=== PATIENT | female | born 1980 | race Caucasian/White ===

== ENCOUNTER 2022-03-26 19:53 | Emergency (ER) | payer OTHER, SELFPAY ==
[2022-03-26 20:29] VITALS: BP 141/80; PULSE 92; RESP 16; TEMP 37.2; O2SAT 98; BMI 25.2
--- NOTE | 2022-03-26 21:42 | CRLHL7_ITS ---
For Patients: As a result of the Century Cures Act, medical imaging exams and procedure reports are released immediately into your electronic medical record. You may view this report before your referring provider. If you have questions, please contact your health care provider. INDICATION: Left flank pain. Eval for stone.. TECHNIQUE: CT abdomen and pelvis without contrast. COMPARISON: January 29, 2019.. FINDINGS: Limited evaluation of the intra-abdominal solid organs without IV contrast. Lower chest: Unremarkable. Liver: Normal in size and attenuation. No suspicious masses. Gallbladder and bile ducts: No stones or inflammation. No biliary dilatation. Pancreas: Unremarkable. No mass or inflammation. Spleen: Normal in size. No masses. Adrenal glands: Normal in size. No nodules. Kidneys: Core stone in the distal left ureter is identified measuring up to 9 millimeters in diameter. There is proximal left hydroureter nephrosis to a severe degree. Additional nonobstructing stones are identified in the inferior pole of the left kidney measuring up to 9 millimeters in diameter. Small punctate stones in the right kidney, nonobstructing. No right hydronephrosis or hydroureter. GI tract: Unremarkable. Normal in caliber. No sign of mass or inflammation. Normal appendix. Vasculature: Abdominal aorta is normal in caliber. Lymph nodes: No lymphadenopathy. Peritoneum/Abdominal Wall: Small fat containing left inguinal hernia. No sign of mass or infiltration. No free air or significant free fluid. Pelvis: Unremarkable. No pelvic masses. Bones: Unremarkable for age. IMPRESSION: Left distal ureteral stone measuring up to 9 millimeters in diameter with proximal moderate to severe hydroureteronephrosis. Additional nonobstructing stones in the bilateral kidneys. Please note that all CT scans at this facility use dose modulation, iterative reconstruction, and/or weight-based dosing when appropriate to reduce radiation dose to as low as reasonably achievable. Dictated by Jensen Bourne MD @ 03/26/2022 10:45:53 PM (Electronically Signed)
[2022-03-26 21:59] LABS: Basophils Absolute Auto 0.03 K/uL (0.00-0.30); Basophils Percent Auto 0.5 % (0.0-3.0); Eosinophils Absolute Auto 0.16 K/uL (0.00-0.50); Eosinophils Percent Auto 2.9 % (0.0-7.0); Hematocrit 41.6 % (33.0-51.0); Hemoglobin* 14.2 gm/dL (12.0-16.0); Lymphocytes Percent Auto 32.5 % (20-44); Mean Corpuscular HGB Conc 34 gm/dL (32-36); Mean Corpuscular Hemoglobin 29 pg (26-34); Mean Corpuscular Volume 85 fL (80-100); Monocytes Percent Auto 8.9 % (0.0-11.0); Neutrophils Absolute Auto 3.05 K/uL (1.7-7.0); Neutrophils Percent Auto 55.2 % (42.0-72.0); Platelet Count* 197 K/uL (140-440); RDW Coefficient of Variation % 12.1 % (11.5-15.5); Red Blood Count 4.87 m/uL (4.00-5.20); White Blood Count* 5.53 K/uL (4.50-11.00)
[2022-03-26 22:01] LABS: Slide Review Reflex No
[2022-03-26 22:08] LABS: Appearance Urine Cloudy (Clear); Bilirubin Urine Negative (Negative); Blood Urine 3+ (Negative); Color Urine Yellow (Yellow); Glucose Urine Negative (Negative); Ketones Urine Trace (Negative); Leukocyte Esterase Urine Trace (Negative); Nitrite Urine Negative (Negative); Protein Urine 2+ (Negative); Specific Gravity Urine >= 1.030 (1.000-1.030); Urobilinogen Urine 0.2 (0.2-1.0)
[2022-03-26 22:10] LABS: Chloride* 107 mmol/L (96-114)
[2022-03-26 22:11] LABS: Potassium* 3.6 mmol/L (3.6-5.1); Sodium* 143 mmol/L (135-149)
[2022-03-26 22:14] LABS: Blood Urea Nitrogen* 20 mg/dL (5-24); Calcium* 8.9 mg/dL (8.4-10.6); Carbon Dioxide* 29 mmol/L (20-32); Creatinine* 0.9 mg/dL (0.5-1.5); Est. Creatinine Clearance* 66.37; Estimated Glomerular Filt Rate 83 ml/min; Glucose* 91 mg/dL (60-115)
[2022-03-26] MEDS: 0.9 % SODIUM CHLORIDE 1000 ml 1,000 ML IV (22:14)
[2022-03-26] MEDS: ONDANSETRON 2 MG/ML inj 4 MG IVP (22:14)
[2022-03-26] MEDS: KETOROLAC 30 MG/ML inj IVP (22:14)
[2022-03-26 22:17] VITALS: PULSE 59; O2SAT 99
[2022-03-26 22:44] LABS: Bacteria Urine Moderate; Mucus Urine Few; Squamous Epithelial Cell Urine Moderate (None-Few)
[2022-03-26 22:45] LABS: Ur HCG Qualitative* Negative (Negative)
[2022-03-26 23:54] VITALS: BP 137/90; PULSE 73; O2SAT 98
[2022-03-26 23:55] VITALS: PULSE 73; O2SAT 98
[2022-03-27] VITALS: PULSE 70; O2SAT 97
[2022-03-27 00:01] VITALS: BP 141/88; PULSE 72; O2SAT 98
[2022-03-27 00:15] VITALS: PULSE 76; O2SAT 97
[2022-03-27 00:30] VITALS: PULSE 79; O2SAT 98
[2022-03-27 00:31] VITALS: BP 151/97; PULSE 76; O2SAT 98
--- NOTE | 2022-03-27 00:31 | ED_ITS ---
HPI - Abdominal Pain General Chief Complaint: Flank Pain Stated Complaint: Lower Left Back Pain,Possible kidney stone Time Seen by Provider: 03/26/22 21:34 History of Present Illness HPI narrative: Pt is a 41 year old woman who presents with 8 days of progressive left sided flank pain. Patient has a history of kidney stone and has needed lithotripsy in the past. She has no dysuria. No fevers, chills, some nausea but no vomiting. She has no other abd pain. She has been able to eat and drink. Pain seems to extend down inferiorly. OTC pain medications were not helpful. Pain is sharp and severe. States that she is not . Related Data Home Medications Medication Instructions Recorded Confirmed montelukast 10 mg tablet mg 03/26/22 sertraline 50 mg tablet 100 mg 03/26/22 Previous Rx's Medication Instructions Recorded tamsulosin 0.4 mg capsule (Flomax) 0.4 mg PO QHS #30 caps 03/27/22 Allergies Allergy/AdvReac Type Severity Reaction Status Date / Time No Known Drug Allergies Allergy Verified 03/26/22 20:29 Review of Systems Status of ROS Reports: 10 or more systems reviewed and unremarkable except as noted in History and below [facility] Medical History (Updated 03/27/22 @ 00:40 by Saúl Perales MD) Depression Renal lithiasis Seasonal allergies Social History Smoking Status: Never smoker Second hand tobacco smoke exposure: No How often do you have a drink containing alcohol: monthly or less How often do you have six or more drinks on one occasion: Never AUDIT-C Alcohol total score: 1 Non-prescribed substance use: denies use service: No Exam Narrative: Exam Narrative: EXAM GENERAL: Patient appears comfortable and well. EYES: No scleral icterus. THYROID: no thyroid nodules or thyromegaly. LYMPH: No supraclavicular or cervical lymphadenopathy. SKIN: Visible skin seen during exam normal or with benign process only. EXT: No dependent lower extremity pedal edema. HEART: Regular rate and rhythm with no murmurs, rubs, or gallops. LUNGS: Clear to auscultation bilaterally with no crackles or wheezes. ABD: Soft, non tender, non distended. PSYCH: Good eye contact, speech is not pressured. Const: Vital Signs, click to edit/add: Vital Signs - 24 hr 03/26/22 20:29 03/26/22 22:17 03/26/22 23:54 Temperature 98.9 F Pulse Rate 59 L 73 Pulse Rate [Pulse Oximeter] 92 Respiratory Rate 16 Blood Pressure 137/90 H Blood Pressure [Ri ght Upper Arm] 141/80 H Pulse Oximetry 98 99 98 Oxygen Delivery Me thod Room Air 03/26/22 23:55 Temperature Pulse Rate 73 Pulse Rate [Pulse Oximeter] Respiratory Rate Blood Pressure Blood Pressure [Ri ght Upper Arm] Pulse Oximetry 98 Oxygen Delivery Me thod Course Course Hospital Course: Pt seen and examined. CT of the abd pelvis shows 9 mm renal lithiasis on the left. Labs unremarkable except hematuria on UA. Pt given Zofran, Toradol and Nor mal Saline IV. No change in symptoms. Vital Signs Vital signs: Initial Vital Signs Temperature 98.9 F 03/26/22 20:29 Temperature Source Oral 03/26/22 20:29 Pulse Rate 92 03/26/22 20:29 Respiratory Rate 16 03/26/22 20:29 Blood Pressure 141/80 H 03/26/22 20:29 Blood Pressure Mean 100 03/26/22 20:29 Blood Pressure Position Sitting 03/26/22 20:29 Pulse Oximetry 98 03/26/22 20:29 Oxygen Delivery Method 03/26/22 20:29 Vital Signs Temperature 98.9 F 03/26/22 20:29 Pulse Rate 92 03/26/22 20:29 Respiratory Rate 16 03/26/22 20:29 Blood Pressure 141/80 H 03/26/22 20:29 Pulse Oximetry 98 03/26/22 20:29 Oxygen Delivery Method 03/26/22 20:29 Temperature 98.9 F 03/26/22 20:29 Pulse Rate 73 03/26/22 23:55 Respiratory Rate 16 03/26/22 20:29 Blood Pressure 137/90 H 03/26/22 23:54 Pulse Oximetry 98 03/26/22 23:55 Oxygen Delivery Method 03/26/22 20:29 MDM - Abdominal Pain MDM Narrative Medical decision making narrative: Pt presents with L flank pain. Pt found to have 9 mm kidney stone on the left. No signs of sepsis. Treated with normal saline, zofran and toradol. Pt has a history of Lithotripsy. She will need Urology follow up. Will treat with Flomax, Oxycodone and Zofran. PCP follow up. Differential Diagnosis Differential diagnosis: Likely abdominal pain, acute appendicitis, calculus of kidney, constipation, diverticulitis, endometriosis, pancreatitis and small bowel obstruction Lab Data Labs: Lab Results 03/26/22 03/26/22 03/26/22 Range/Units 21:20 21:52 21:52 WBC 5.53 (4.50-11.00) K/uL RBC 4.87 (4.00-5.20) m/uL Hgb 14.2 (12.0-16.0) gm/dL Hct 41.6 (33.0-51.0) % MCV 85 (80-100) fL MCH 29 (26-34) pg MCHC 34 (32-36) gm/dL RDW Coeff of Mandie 12.1 (11.5-15.5) % Plt Count 197 (140-440) K/uL Neut % (Auto) 55.2 (42.0-72.0) % Lymph % (Auto) 32.5 (20-44) % [place] % (Auto) 8.9 (0.0-11.0) % Eos % (Auto) 2.9 (0.0-7.0) % Baso % (Auto) 0.5 (0.0-3.0) % Neut # (Auto) 3.05 (1.7-7.0) K/uL Lymph # (Auto) 1.80 (0.90-2.90) K/uL [place] # (Auto) 0.50 (0.00-0.90) K/UL Eos # (Auto) 0.16 (0.00-0.50) K/uL Baso # (Auto) 0.03 (0.00-0.30) K/uL Sodium 143 (135-149) mmol/L Potassium 3.6 (3.6-5.1) mmol/L Chloride 107 (96-114) mmol/L Carbon Dioxide 29 (20-32) mmol/L BUN 20 (5-24) mg/dL Creatinine 0.9 (0.5-1.5) mg/dL Estimated Creat Clear 66.37 Estimated GFR 83 ml/min Glucose 91 (60-115) mg/dL Calcium 8.9 (8.4-10.6) mg/dL Urine Color Yellow (Yellow) Urine Appearance Cloudy A (Clear) Urine pH 6.0 (5.0-8.5) Ur Specific [place] >= 1.030 (1.000-1.030) Urine Protein 2+ A (Negative) Urine Glucose (UA) Negative (Negative) Urine Ketones Trace A (Negative) Urine Blood 3+ A (Negative) Urine Nitrite Negative (Negative) Urine Bilirubin Negative (Negative) Urine Urobilinogen 0.2 (0.2-1.0) Ur Leukocyte Esterase Trace A (Negative) Urine RBC 10-25 A (0-2) Urine WBC 2-5 (0-5) Ur Squamous Epith Cells Moderate A (None-Few) Urine Bacteria Moderate A (None) Urine Mucus Few A (None) Urine HCG, Qual Negative (Negative) Discharge Plan Discharge Clinical Impression: Kidney stone Patient Disposition: Home, Self-Care Condition: Stable Instructions: Kidney Stones (ED) Additional Instructions: Oxycodone as directed from [facility] Zofran from home supply as directed Flomax sent to pharmacy Follow up with Urology. Activity Level: No Restrictions Discharge Diet: Regular Prescriptions: New tamsulosin [Flomax] 0.4 mg capsule 0.4 mg PO QHS Qty: 30 2RF No Action sertraline 50 mg tablet 100 mg montelukast 10 mg tablet Follow Up/Referrals: Lamont Londono MD [Primary Care Provider] - Stand Alone Forms: [facility] Info Instructions
== END 2022-03-27 00:52 | disposition home or self-care (01) ==
PROVIDERS: Emergency Medicine; Emergency Provider Internal Medicine; PCP Family Medicine
DX: N20.0 Calculus of kidney (principal); Z87.442 Personal history of urinary calculi
CPT/HCPCS: 36415; 74176; 80048; 81001; 81025; 85025; 87086; 96361; 96374; 96375; 99283; 99284; J1885; J2405; J7030

== ENCOUNTER 2023-11-25 09:13 | Outpatient (CLI) | payer BC, SELFPAY ==
--- OUTSIDE RECORDS SUMMARY | 2023-11-25 09:16 | XMS_ITS | Clinical Summary ---
Author Organization [facility] Address [place], [place] [address] Care Team Providers Care Labor Contractor Name Role Phone Lamont Londono MD Primary Care Provider [phone] Allergies No known active allergies Medications Medication Sig Dispensed Refills Start Date End Date Status sertraline (ZOLOFT) 50 mg tablet Take 100 mg by mouth once daily. 0 03/08/2015 Active fluticasone (50 mcg per actuation) nasal solution (FLONASE) Inhale 1 [place] to both nostrils once daily if needed. 1 Bottle 0 03/08/2015 Active montelukast (SINGULAIR) 10 mg tablet Take 10 mg by mouth once daily. Active galcanezumab-gnlm (Emgality Syringe) 120 mg/mL syrg Inject 120 mg subcutaneous every 4 weeks. Active SUMAtriptan (IMITREX) 50 mg tablet Take 50 mg by mouth 2 times daily if needed for Migraine. Give at minimum 2hrs apart. Max Dose: 200mg per 24hrs. Active oxyCODONE-acetami nophen (PERCOCET) 5-325 mg per tabletIndications :Left renal stone Take 1 Tablet by mouth every 6 hours if needed for Pain. Max acetaminophen dose: 4000mg in 24 hrs. 20 Tablet 04/25/2022 Active tamsulosin (FLOMAX) 0.4 mg capsuleIndication s:Left renal stone Take 1 Capsule (0.4 mg) by mouth once daily after a meal. 30 Capsule 04/25/2022 Active Active Problems Problem Noted Date Diagnosed Date Bilateral kidney stones 05/08/2015 Urinary urgency 05/08/2015 Immunizations Name Administration Dates Next Due Tdap 10/25/2014 Family History Medical History Relation Name Comments Cancer-prostate Father Heart Disease Father Hyperlipidemia Father Hypertension Father Other Father Stroke Father Good Health Mother Good Health Sister Relation Name Status Comments Father Mother Sister Social History Tobacco Use Types Packs/Day Years Used Date Smoking Tobacco: Never Smokeless Tobacco: Never Alcohol Use Standard Drinks/Week Comments Yes 0 (1 standard drink = 0.6 oz pur e alcohol) rare Sex and Gender Information Value Date Recorded Sex Assigned at Not on file Gender Identity Not on file Sexual Orientation Not on file Obstetrics History Last Filed Vital Signs Vital Sign Reading Time Taken Comments Blood Pressure 130/59 04/25/2022 5:30 PM EXHAUST EQUIPMENT OPERATOR Pulse 73 04/25/2022 5:30 PM EXHAUST EQUIPMENT OPERATOR Temperature 36.4 ??C (97.6 ??F) 04/25/2022 4:33 PM CS T Respiratory Rate 16 04/25/2022 4:33 PM EXHAUST EQUIPMENT OPERATOR Oxygen Saturation 97% 04/25/2022 5:30 PM EXHAUST EQUIPMENT OPERATOR Inhaled Oxygen Concentration - - Weight 64.8 kg (142 lb 12.8 oz) 04/25/2022 1:12 PM EXHAUST EQUIPMENT OPERATOR Height 157.5 cm (5' 2) 04/25/2022 1:12 PM EXHAUST EQUIPMENT OPERATOR Body Mass Index 26.12 04/25/2022 1:12 PM EXHAUST EQUIPMENT OPERATOR Plan of Treatment Health Maintenance Due Date Last Done Comments Depression screening for age 12+ 1994 HIV for age 15-65 1997 BMI (ht and wt on same day) for age 18+ 2000 Hepatitis C screening for age 18-79 2000 COVID-19 vaccine series ( season) 2022 11/20/2020 Influenza for age 9-49 12/07/2023 Pap test for age 21-65 03/05/2024 , 03/05/2021, 10/25/2014, Additional history exists Tetanus booster 10/25/2024 10/25/2014 Tdap Completed 10/25/2014 Pneumococcal series for age 6-64 Aged Out No longer eligible based on patient's age to complete this topic Procedures Procedure Name Priority Date/Time Associated Diagnosis Comments HPV THIN PREP Routine 03/05/2021 8:30 AM EXHAUST EQUIPMENT OPERATOR from Last 3 Months or Most Recently Relevant to Health Maintenance Results * HPV HIGH RISK (03/05/2021 8:30 AM EXHAUST EQUIPMENT OPERATOR) TYPE 16 Negative Negative 03/07/2021 11:43 AM EXHAUST EQUIPMENT OPERATOR [facility] TYPE 18 Negative Negative 03/07/2021 11:43 AM EXHAUST EQUIPMENT OPERATOR [facility] OTHER HIGH RISK TYPES Negative Negative 03/07/2021 11:43 AM EXHAUST EQUIPMENT OPERATOR [facility] Other (Cervical/Vagina l) 03/05/2021 8:30 AM EXHAUST EQUIPMENT OPERATOR 03/06/2021 8:53 AM EXHAUST EQUIPMENT OPERATOR Narrative [facility] - 03/07/2021 11:43 AM EXHAUST EQUIPMENT OPERATOR HPV types 16, 18, 31, 33, 35, 39, 45, 51, 52, 56, 58, 59, 66 and 68 DNA were undetectable or below the pre-set threshold. Methodology: Jonathan Fanta 4800 HPV Test Lamont Londono MD MICROBIOLOGY [facility] [address] [place] [address], from Last 3 Months or Most Recently Relevant to Health Maintenance Advance Directives * Full Code (Latest Code Status on File) Date Activated Date Inactivated Comments 04/25/2022 1:43 PM 04/25/2022 8:01 PM Question Answer Comments Code Status Discussion: Not Discussed Care Teams Labor Contractor Relationship Specialty Start Date End Date Lamont Londono MD PCP - General Family Practice 04/19/22
--- OUTSIDE RECORDS SUMMARY | 2023-11-25 09:16 | XMS_ITS | Clinical Summary ---
Author Organization [facility] Address [address] [place] [address] Care Team Providers Care Silk Examiner Name Role Phone Unavailable Primary Care Provider Unavailabl e Source Comments You are receiving this document as you are listed as the primary care provider,follow-up provider, or the patient has been referred to you for consultation.This is in compliance with the Medicare andRegional Medical Centercaid EHR Incentive Program,which states Providers who transition their patient to another setting of careor provider of care or refers their patient to another provider of care shouldprovide summary care record for each transition of care or referral. [place] Immunizations Name Administration Dates Next Due Influenza IIV4 (Quadrivalent) 0.5mL (93056) 02/06 Social History Tobacco Use Types Packs/Day Years Used Date Smoking Tobacco: Never Assessed Sex and Gender Information Value Date Recorded Sex Assigned at Not on file Gender Identity Not on file Sexual Orientation Not on file Plan of Treatment Health Maintenance Due Date Last Done Comments Cervical Cancer Screening Due 1982 Hep C Screening (Preventive Services) 1982 Mammogram 1982 HIV Screening (Preventive Services) 1998 Adult Preventive Visit 2000 HepB (1) 2001 COVID-19 Vaccine ( season) 2022 11/20/2020, 10/23/2020 Influenza (#1) 2023 02/24/2019, 01/05, 02/06/2010, Additional history exists DTaP/Tdap/Td (3 - Tdap) 10/25/2024 10/25/2014, 09/19 Zoster/Shingles (1 of 2) 2032 HPV Vaccine Aged Out No longer eligi ble based on patient's age to complete this topic HepA Aged Out No longer eligi ble based on patient's age to complete this topic Hib Aged Out No longer eligi ble based on patient's age to complete this topic IPV (Polio) Aged Out No longer eligi ble based on patient's age to complete this topic MCV4 Aged Out No longer eligi ble based on patient's age to complete this topic Pneumococcal Aged Out No longer eligi ble based on patient's age to complete this topic Tuyet Jones Personal/Family Self 1980 [id number] [address] [id number]
--- OUTSIDE RECORDS SUMMARY | 2023-11-25 09:16 | XMS_ITS | Clinical Summary ---
Author Organization [place] Address [address] [facility] [place] [address] Care Team Providers Care Berry Planter Name Role Phone Clinic, [facility] Medical Primary Ca re Provider Allergies No known active allergies Medications Medication Sig Dispensed Refills Start Date End Date Status fluticasone (FLONASE) 50 MCG/ACT nasal spray [place] 1 spray into both nostrils daily as needed 03/08/2015 Active sertraline (ZOLOFT) 50 MG tablet Take 100 mg by mouth every evening 03/08/2015 Active montelukast (SINGULAIR) 10 MG tablet Take 10 mg by mouth At Bedtime Active ibuprofen (ADVIL/MOTRIN) 200 MG tablet Take 800 mg by mouth every 6 hours as needed for mild pain Active SUMAtriptan (IMITREX) 50 MG tablet Take 50 mg by mouth at onset of headache for migraine Active oxyCODONE (ROXICODONE) 5 MG tablet Take 5 mg by mouth every 6 hours as needed for severe pain (7-10) Active galcanezumab-gnlm (EMGALITY) 120 MG/ML injection Inject 120 mg Subcutaneous every 28 days Active tamsulosin (FLOMAX) 0.4 MG capsuleIndications :Ureteral stone Take 1 capsule (0.4 mg) by mouth daily 30 capsule 03/30/2022 Active Active Problems Problem Noted Date Diagnosed Date Left ureteral stone 01/22/2019 ARF (acute renal failure) (H24) 01/22/2019 Hydronephrosis of left kidney 01/22/2019 Ureteral calculus, left 01/22/2019 Bilateral kidney stones 05/08/2015 Family History Medical History Relation Comments Cerebrovascular Disease Father Coronary Artery Disease Father Hyperlipidemia Father Nephrolithiasis Father Nephrolithiasis Mother Relation Status Comments Father Alive Mother Alive Social History Tobacco Use Types Packs/Day Years Used Date Smoking Tobacco: Never Smokeless Tobacco: Never Alcohol Use Standard Drinks/Week Comments Yes 0 (1 standard drink = 0.6 oz pur e alcohol) occasional Adolescent Education Answer Date Record ed Getting School Help Needed Not on file 12/27 Sex and Gender Information Value Date Recorded Sex Assigned at Not on file Gender Identity Not on file Sexual Orientation Not on file Last Filed Vital Signs Vital Sign Reading Time Taken Comments Blood Pressure 124/90 03/30/2022 1:50 PM CORPORATE ATTORNEY Pulse 74 03/30/2022 1:50 PM CORPORATE ATTORNEY Temperature 36.2 ??C (97.2 ??F) 03/30/2022 1:40 PM CS T Respiratory Rate 15 03/30/2022 1:50 PM CORPORATE ATTORNEY Oxygen Saturation 99% 03/30/2022 1:56 PM CORPORATE ATTORNEY Inhaled Oxygen Concentration - - Weight 64.2 kg (141 lb 8.6 oz) 03/29/2022 12:36 AM CORPORATE ATTORNEY Height 157.5 cm (5' 2) 03/29/2022 12:36 AM CORPORATE ATTORNEY Body Mass Index 25.89 03/29/2022 12:36 AM CORPORATE ATTORNEY Plan of Treatment Health Maintenance Due Date Last Done Comments ADVANCE CARE PLANNING 1982 ANNUAL REVIEW OF HM ORDERS 1982 MAMMO SCREENING 1982 YEARLY PREVENTIVE VISIT 1982 HIV SCREENING 1997 HEPATITIS C SCREENING 2000 HEPATITIS B IMMUNIZATION (1 of 3 - 19+ 3-dose series) 2001 LIPID 2022 COVID-19 Vaccine (2022- season) 2022 11/20/2020, 10/23/2020 PHQ-2 (once per calendar year) 2023 INFLUENZA VACCINE (#1) 2023 9, 01/18/2011, 02/06/2010, Additional history exists PAP 03/05/2024 03/05/2021, 03/05/2021 DTAP/TDAP/TD IMMUNIZATION (3 - Td or Tdap) 10/25/2024 10/25/2014, 09/19/2000 GLUCOSE 03/30/2025 03/30/2022, 03/08, 03/28/2022, Additional history exists HPV IMMUNIZATION Aged Out No longer e ligible based on patient's age to complete this topic IPV IMMUNIZATION Aged Out No longer e ligible based on patient's age to complete this topic MENINGITIS IMMUNIZATION Aged Out No l onger eligible based on patient's age to complete this topic Pneumococcal Vaccine: Pediatrics (0 to 5 Years) and At-Risk Patients (6 to 64 Years) Aged Out No longer eligible based on patient's age to complete this topic RSV MONOCLONAL ANTIBODY Aged Out No l onger eligible based on patient's age to complete this topic Medical Devices Implanted Type Area Ophthalmologist Retina Specialist Device Identifier Shelf Expiration Date Model / Serial / Lot Stent Ureteral Contour Soft Percuflex [id number] Implanted:Qty : 1 on 01/23/2019 by Jose Daniel Franks MD at [facility] Stent Left: Ureter [employer] 11/08/2021 [id number] 20 / / [id number] Stent Ureteral Polaris Ultra [id number] - [id number] Implanted:Qty : 1 on 03/30/2022 by Trent Mckeon MD at [facility] Stent Left: Urethra [employer] [id number] 12/07/2024 [id number] 20 / / [id number] Procedures Procedure Name Priority Date/Time Associated Diagnosis Comments BASIC METABOLIC PANEL Routine 03/30/2022 6:10 AM CORPORATE ATTORNEY from Last 3 Months or Most Recently Relevant to Health Maintenance Results * (ABNORMAL) Basic metabolic panel (03/30/2022 6:10 AM CORPORATE ATTORNEY) Sodium 139 133 - 144 mmol/L 03/30/2022 6:52 AM [facility] Potassium 3.3(L) 3.4 - 5.3 mmol/L 03/30/2022 6:52 AM [facility] Chloride 108 94 - 109 mmol/L 03/30/2022 6:52 AM [facility] Carbon Dioxide (CO2) 25 20 - 32 mmol/L 03/30/2022 6:52 AM [facility] Anion Gap 6 3 - 14 mmol/L 03/30/2022 6:52 AM [facility] Urea Nitrogen 13 7 - 30 mg/dL 03/30/2022 6:52 AM [facility] Creatinine 0.79 0.52 - 1.04 mg/dL 03/30/2022 6:52 AM [facility] Calcium 8.2(L) 8.5 - 10.1 mg/dL 03/30/2022 6:52 AM [facility] Glucose 93 70 - 99 mg/dL 03/30/2022 6:52 AM CORPORATE ATTORNEY LABORATORY GFR Estimate >90 >60 mL/min/1.7 3m2 03/30/2022 6:52 AM [facility] Comment:Effective March 082020 eGFRcr in adults is calculated using the 2020 CKD-EPI creatinine equation which includes age and gender (Bill et al., NEJM, DOI: 10.1056/WBNGxf0062535) Blood STRUCTURE OF LEFT HAND / Unknown Venipuncture / Unknown 03/30/2022 6:10 AM CORPORATE ATTORNEY 03/30/2022 6:28 AM [facility] Marly Maher DO LAB - BLOOD ORDERABLES LABORATORY [facility] [address], [address] [place] [address], [facility] [phone] from Last 3 Months or Most Recently Relevant to Health Maintenance Advance Directives For more information, please contact: [phone] * Full Code (Latest Code Status on File) Date Activated Date Inactivated Comments 03/28/2022 9:01 PM 03/30/2022 5:27 PM All basic and advanced life-sustaining interventions are performed as appropriate Question Answer Comments Code status determined by: Discussion with patie nt/ legal decision maker * Full Code Date Activated Date Inactivated Comments 01/22/2019 3:44 PM 01/23/2019 5:35 PM Question Answer Comments Code status determined by: Discussion with nic nt/legal decision maker Care Teams Berry Planter Relationship Specialty Start Date End Date [facility], [address] [address] PCP - General 01/22/19
--- OUTSIDE RECORDS SUMMARY | 2023-11-25 09:16 | XMS_ITS | Referral Summary ---
Author Organization [facility] Address [address] [place] [place] [address] Care Team Providers Care Enrollment Management Vice President Name Role Phone Clinic, [facility] Medical Primary Ca re Provider Allergies No known active allergies Medications Medication Sig Dispensed Refills Start Date End Date Status fluticasone (FLONASE) 50 MCG/ACT nasal spray [place] 1 spray into both nostrils daily as [...] calculus, left 01/22/2019 Bilateral kidney stones 05/08/2015 Social History Tobacco Use Types Packs/Day Years [...] Comments Blood Pressure 124/90 03/30/2022 1:50 PM BANKRUPTCY MANAGER Pulse 74 03/30/2022 1:50 PM BANKRUPTCY MANAGER Temperature 36.2 ??C (97.2 ??F) 03/30/2022 1:40 PM CS T Respiratory Rate 15 03/30/2022 1:50 PM BANKRUPTCY MANAGER Oxygen Saturation 99% 03/30/2022 1:56 PM BANKRUPTCY MANAGER Inhaled Oxygen Concentration - - Weight 64.2 kg (141 lb 8.6 oz) 03/29/2022 12:36 AM BANKRUPTCY MANAGER Height 157.5 cm (5' 2) 03/29/2022 12:36 AM BANKRUPTCY MANAGER Body Mass Index 25.89 03/29/2022 12:36 AM BANKRUPTCY MANAGER Plan of Treatment Not on file Medical Devices Implanted Type Area Business Unit Manager Device Identifier Shelf Expiration Date Model / Serial / Lot Stent Ureteral Contour Soft Percuflex [id number] Implanted:Qty : 1 on 01/23/2019 by Jose Daniel Franks MD at [facility] Stent Left: Ureter [employer] 11/08/2021 [id number] / / [id number] Stent Ureteral Polaris Ultra [id number] - [id number] Implanted:Qty : 1 on 03/30/2022 by Trent Mckeon MD at [facility] Stent Left: Urethra [employer] [id number] 12/07/2024 [id number] / / [id number] Procedures Procedure Name Priority Date/Time Associated Diagnosis Comments BASIC METABOLIC PANEL Routine 03/30/2022 6:10 AM BANKRUPTCY MANAGER from Last 3 Months or Most Recently Relevant to Health Maintenance Results * (ABNORMAL) Basic metabolic panel (03/30/2022 6:10 AM BANKRUPTCY MANAGER) Sodium 139 133 - 144 mmol/L 03/30/2022 6:52 AM BANKRUPTCY MANAGER LABORATORY Potassium 3.3(L) 3.4 - 5.3 mmol/L 03/30/2022 6:52 AM [facility] Chloride 108 94 - 109 mmol/L 03/30/2022 6:52 AM [facility] Carbon Dioxide (CO2) 25 20 - 32 mmol/L 03/30/2022 6:52 AM [facility] Anion Gap 6 3 - 14 mmol/L 03/30/2022 6:52 AM [facility] Urea Nitrogen 13 7 - 30 mg/dL 03/30/2022 6:52 AM [facility] Creatinine 0.79 0.52 - 1.04 mg/dL 03/30/2022 6:52 AM [facility] Calcium 8.2(L) 8.5 - 10.1 mg/dL 03/30/2022 6:52 AM [facility] Glucose 93 70 - 99 mg/dL 03/30/2022 6:52 AM [facility] GFR Estimate >90 >60 mL/min/1.7 3m2 03/30/2022 6:52 AM [facility] Comment:Effective March 082020 eGFRcr in adults is calculated using the 2020 CKD-EPI creatinine equation which includes age and gender (Bill et al., NEJM, DOI: 10.1056/WUIMyu0206266) Blood STRUCTURE OF LEFT HAND / Unknown Venipuncture / Unknown 03/30/2022 6:10 AM BANKRUPTCY MANAGER 03/30/2022 6:28 AM [facility] Marly Maher DO LAB - BLOOD ORDERABLES LABORATORY [facility] [address], [address] [place] [address], [facility] [phone] from Last 3 Months or Most Recently Relevant to Health Maintenance Advance Directives For more information, please contact: [phone] * Full Code (Latest Code Status on File) Date Activated Date Inactivated Comments 03/28/2022 9:01 PM 03/30/2022 5:27 PM All basic and advanced life-sustaining interventions are performed as appropriate Question Answer Comments Code status determined by: Discussion with evangelinae nt/ legal decision maker * Full Code Date Activated Date Inactivated Comments 01/22/2019 3:44 PM 01/23/2019 5:35 PM Question Answer Comments Code status determined by: Discussion with nic nt/legal decision maker Care Teams Enrollment Management Vice President Relationship Specialty Start Date End Date [facility] [place] [address] [address] [facility] [place] [id number] PCP - General 01/22/19
== END 2023-11-25 09:14 | disposition home or self-care (01) ==
PROVIDERS: PCP Family Medicine; Visit Provider Family Medicine
DX: R53.83 Other fatigue (principal); I10 Essential (primary) hypertension; Z13.6 Encounter for screening for cardiovascular disorders; Z13.29 Encounter for screening for other suspected endocrine disorder
CPT/HCPCS: 80048; 80061; 84439; 84443

== ENCOUNTER 2024-08-17 13:02 | Outpatient (CLI) | payer BC, SELFPAY ==
--- NOTE | 2024-08-17 13:20 | CRLHL7_ITS ---
For Patients: As a result of the Cures Act, medical imaging exams and procedure reports are released immediately into your electronic medical record. You may view this report before your referring provider. If you have questions, please contact your health care provider. INDICATION: SCREENING MAMMOGREAM, ASYMPTOMATIC 44 Y/O FEMALE COMPARISON: BASELINE TECHNIQUE: Digital mammogram in CC and MLO projections including computer-aided detection (CAD) and tomosynthesis. BREAST COMPOSITION: The breasts are heterogeneously dense, which may obscure small masses. FINDINGS: No suspicious findings. ASSESSMENT: BI-RADS 1 Negative RECOMMENDATION: Annual screening mammogram. A lay language report of this examination will be provided to the patient. Dictated by: Alan Jones MD @ 08/18/2024 11:54:35 (Electronically Signed)
== END 2024-08-17 13:03 | disposition home or self-care (01) ==
LOC: MAMMO 13:03
PROVIDERS: PCP Family Medicine; Visit Provider Family Medicine
DX: Z12.31 Encounter for screening mammogram for malignant neoplasm of breast (principal); R92.333 Mammographic heterogeneous density, bilateral breasts
CPT/HCPCS: 77063; 77067

== ENCOUNTER 2025-01-21 11:34 | Outpatient (CLI) | payer BC, SELFPAY | END 2025-01-21 11:35 | disposition home or self-care (01) | LOC: LKVREF 11:35 | PROVIDERS: PCP Family Medicine; Visit Provider Family Medicine | DX: I10 Essential (primary) hypertension (principal) | CPT/HCPCS: 80048 ==